=== PATIENT | female | born 1980 | race Two or more races ===

== ENCOUNTER 2017-03-21 01:06 | Inpatient (IN) | payer OTHER, MEDICAID ==
[~2017-03-21] VITALS: Ht 170.2 cm; Wt 74.5 kg
[2017-03-21 01:08] VITALS: BP 117/75
[2017-03-21] MEDS ORDERED: OXYTOCIN 30U/ 0.9% NaCL 500ML 500 ML IV ONE (01:17)
[2017-03-21] MEDS ORDERED: D5%-LACTATED RINGERS 1,000 ML IV SCH (01:17)
[2017-03-21] MEDS: LACTATED RINGERS 1,000 ML IV SCH ×6 (01:20→20:35)
[2017-03-21] MEDS ORDERED: ONDANSETRON 2MG/ML, 2ML IVPush PRN ×2 (01:30→17:30)
[2017-03-21] MEDS ORDERED: FENTANYL PF 100 MCG/2ML IV PRN ×2 (01:30→17:30)
[2017-03-21] MEDS ORDERED: CALCIUM CARBONATE 500 MG TAB.CHEW PO PRN (01:30)
[2017-03-21] MEDS ORDERED: TERBUTALINE 1 MG/ML, 1ML IVPush PRN (01:30)
[2017-03-21] MEDS ORDERED: SODIUM CITRATE/CITRIC ACID 30 ML UDC PO PRN (01:30)
[2017-03-21] MEDS ORDERED: METOCLOPRAMIDE 5 MG/ML, 2ML IVPush PRN (01:30)
[2017-03-21] MEDS ORDERED: FENTANYL PF 100 MCG/2ML ONE ×3 (03:30→17:19)
[2017-03-21] MEDS: FENTANYL PF 100 MCG/2ML IVPush PRN ×2 (03:32→06:15)
[2017-03-21] MEDS ORDERED: FENTANYL/BUPIV./NS/PF 250 ML EPIDCONT ONE (07:02)
[2017-03-21] MEDS ORDERED: LIDOCAINE/PF 1.5%-EPI 1:200K, 30ML ONE ×2 (07:02→07:05)
[2017-03-21] MEDS ORDERED: LIDOCAINE/MPF 2%-EPI 1:200K, 20 ML ONE (07:05)
[2017-03-21 07:15] VITALS: BP 107/70
[2017-03-21] MEDS ORDERED: OXYTOCIN 30U/ 0.9% NaCL 500ML 500 ML IV PRN (08:35)
[2017-03-21] MEDS ORDERED: ONDANSETRON 2MG/ML, 2ML ONE ×2 (14:40→18:49)
[2017-03-21] MEDS ORDERED: SODIUM CITRATE/CITRIC ACID 30 ML UDC ONE (17:17)
[2017-03-21] MEDS ORDERED: METOCLOPRAMIDE 5 MG/ML, 2ML ONE ×2 (17:17→17:30)
[2017-03-21] MEDS ORDERED: CEFAZOLIN 1,000 MG ONE (17:30)
[2017-03-21] MEDS ORDERED: OXYcodone 5 MG/5 ML ORAL.SOL UDC PO PRN (17:30)
[2017-03-21] MEDS ORDERED: KETOROLAC 30 MG/1 ML ONE ×2 (17:30→19:03)
[2017-03-21] MEDS ORDERED: MEPERIDINE/PF 25MG/0.5ML IVPush PRN (17:30)
[2017-03-21] MEDS ORDERED: morphine SULFATE 10 MG/ML, 1ML IV PRN (17:30)
[2017-03-21] MEDS ORDERED: METOCLOPRAMIDE 5 MG/ML, 2ML IV PRN (18:30)
[2017-03-21] MEDS ORDERED: OXYcodone/APAP 5/325MG TABLET PO PRN (18:30)
[2017-03-21] MEDS ORDERED: ACETAMINOPHEN 325 MG TABLET PO PRN (18:30)
[2017-03-21] MEDS ORDERED: SIMETHICONE 80 MG CHEW TAB PO PRN (18:30)
[2017-03-21] MEDS ORDERED: ONDANSETRON 2MG/ML, 2ML IV PRN (18:30)
[2017-03-21] MEDS ORDERED: OXYcodone 5 MG/5 ML ORAL.SOL UDC ONE ×2 (19:03)
[2017-03-21] MEDS: KETOROLAC 30 MG/1 ML IV SCH (19:07)
[2017-03-21 20:25] VITALS: BP 144/81
[2017-03-21] MEDS: OXYTOCIN 30U/ 0.9% NaCL 500ML 500 ML IV SCH (20:35)
[2017-03-21 21:35] VITALS: BP 119/73
[2017-03-21] MEDS: OXYcodone/APAP 5/325MG TABLET PO PRN (22:28)
[2017-03-21] MEDS: DOCUSATE 100 MG CAPSULE PO PRN (22:28)
[2017-03-22] MEDS: KETOROLAC 30 MG/1 ML IV SCH ×4 (01:02→21:10)
[2017-03-22 01:06] VITALS: BP 120/70
[2017-03-22] MEDS: LACTATED RINGERS 1,000 ML IV SCH ×4 (02:19→14:19)
[2017-03-22] MEDS: OXYcodone/APAP 5/325MG TABLET PO PRN ×4 (03:37→16:03)
[2017-03-22] MEDS: OXYTOCIN 30U/ 0.9% NaCL 500ML 500 ML IV SCH ×2 (04:19→14:19)
[2017-03-22 04:35] VITALS: BP 105/70
[2017-03-22 06:40] VITALS: BP 102/64
[2017-03-22] MEDS ORDERED: PRENATAL VIT/IRON/FA 1 EACH TABLET ONE (07:54)
[2017-03-22] MEDS: DOCUSATE 100 MG CAPSULE PO PRN ×2 (07:58→21:02)
[2017-03-22] MEDS: PRENATAL VIT/IRON/FA 1 EACH TABLET PO SCH (07:58)
[2017-03-22 13:10] VITALS: BP 102/60
[2017-03-22 15:16] VITALS: BP 101/59
[2017-03-22 19:35] VITALS: BP 109/72
[2017-03-22] MEDS ORDERED: OXYcodone IR 5MG TABLET ONE (21:01)
[2017-03-22] MEDS: OXYcodone IR 5MG TABLET PO PRN (21:02)
[2017-03-23] MEDS: LACTATED RINGERS 1,000 ML IV SCH ×3 (00:19→20:19)
[2017-03-23] MEDS ORDERED: OXYC-302 PO (00:55)
[2017-03-23] MEDS ORDERED: IBUP-1222 PO (00:55)
[2017-03-23] MEDS ORDERED: DOCU-30 PO (00:56)
[2017-03-23] MEDS: OXYcodone IR 5MG TABLET PO PRN ×6 (01:03→23:31)
[2017-03-23] MEDS: KETOROLAC 30 MG/1 ML IV SCH ×3 (02:45→13:29)
[2017-03-23 07:31] VITALS: BP 101/69
[2017-03-23] MEDS: DOCUSATE 100 MG CAPSULE PO PRN ×2 (08:57→19:25)
[2017-03-23] MEDS: PRENATAL VIT/IRON/FA 1 EACH TABLET PO SCH (08:57)
[2017-03-23] MEDS: IBUPROFEN 600 MG TABLET PO PRN ×2 (15:42→23:28)
[2017-03-23] MEDS ORDERED: IBUPROFEN 600 MG TABLET PO PRN (18:30)
[2017-03-23 19:28] VITALS: BP 102/64
[2017-03-24] MEDS: LACTATED RINGERS 1,000 ML IV SCH (00:42)
[2017-03-24] MEDS: OXYcodone IR 5MG TABLET PO PRN ×3 (05:31→13:58)
[2017-03-24] MEDS: IBUPROFEN 600 MG TABLET PO PRN ×2 (05:31→13:32)
[2017-03-24 07:19] VITALS: BP 109/62
[2017-03-24] MEDS: PRENATAL VIT/IRON/FA 1 EACH TABLET PO SCH (07:25)
[2017-03-24] MEDS: DOCUSATE 100 MG CAPSULE PO PRN (07:25)
== END 2017-03-24 14:10 | disposition home or self-care (01) | DRG 766 ==
LOC: LDOP 01:06 → LDIP 01:27 → 2NW 20:15
PROVIDERS: ADMIT Obstetrics & Gynecology; ATTEND Obstetrics & Gynecology
PROC: 10D00Z1 Extraction of Products of Conception, Low, Open Approach (ICD-10-PCS; principal; 2017-03-21)
DX: O34.211 Maternal care for low transverse scar from previous cesarean delivery (principal); O32.2XX0 Maternal care for transverse and oblique lie, not applicable or unspecified; O76 Abnormality in fetal heart rate and rhythm complicating labor and delivery; O66.41 Failed attempted vaginal birth after previous cesarean delivery; Z37.0 Single live birth; Z3A.38 38 weeks gestation of pregnancy; Z87.59 Personal history of other complications of pregnancy, childbirth and the puerperium
CPT/HCPCS: 36415; 85025; 86850; 86900; J0690; J1885; J2405; J3010; J3490; J2590; J2765; J7120